=== PATIENT | male | born 1970 | race Caucasian/White ===

== ENCOUNTER → 2017-12-06 | Outpatient (CLI) | payer OTHER ==
[~2017-12-06] MED LIST: GABA-490 PO; INSU100V26 SC; INSU300I SC; MULT-964 PO
== END ==
LOC: LAB 12:29
PROVIDERS: ATTEND Nurse Practitioner Psychiatric/Mental Health
DX: E13.65 Other specified diabetes mellitus with hyperglycemia (principal)
CPT/HCPCS: 36415; 83036

== ENCOUNTER → 2018-05-17 | Outpatient (CLI) | payer BC ==
[2018-05-17 15:47] LABS: PLATELET COUNT, AUTOMATED 207 K/uL (150-450)
[2018-05-17 15:58] LABS: LDL CHOLESTEROL 55 mg/dl
== END ==
LOC: LAB 15:32
PROVIDERS: ATTEND Nurse Practitioner Psychiatric/Mental Health
DX: Z00.00 Encounter for general adult medical examination without abnormal findings (principal)
CPT/HCPCS: 36415; 82040; 82247; 82310; 82374; 82435; 82465; 82565; 82947; 83036; 83718; 84075; 84132; 84155; 84295; 84450; 84460; 84478; 84520; 85025

== ENCOUNTER 2018-12-10 09:14 | Inpatient (IN) | payer BC ==
[~2018-12-10] VITALS: Ht 185.4 cm; Wt 72.6 kg
[2018-12-10] VITALS (14 sets, daily range): BP systolic 102–143; BP diastolic 67–91; Ht 185.4 cm; Wt 72.6 kg
--- NOTE | 2018-12-10 09:23 | ER Report ---
History and Physical Time Seen By MD: 09:23 HPI/ROS CHIEF COMPLAINT: Nausea and vomiting and elevated blood glucose levels HISTORY OF PRESENT ILLNESS: This is a 48-year-old male. He has a history of type 1 diabetes. Has been sick for the last couple of days with nausea and vomiting. Because of this he has been unable to eat or drink anything and has not taken as much insulin resulting in higher blood glucose levels. Vomiting is intractable and he has not been able to keep anything down. Having epigastric pain associated with this. Feels a little short of breath with fast breathing but no fevers or chills noted. Allergies: Coded Allergies: No Known Drug Allergies (Unverified , 12/21/16) Home Meds Reported Medications Amoxicillin (AMOXICILLIN) 500 Mg Capsule 12/10/18 Insulin Regular, Human (HUMULIN R) 100 Unit/1 Ml Vial, 2-10 UNIT SC DIRECTED PRN for SLIDING SCALE INSULIN, VIAL 12/25/16 Multivitamin With Minerals (MULTIVITAMINS WITH MINERALS) 1 Each Tablet, 1 EACH PO DAILY 12/25/16 Gabapentin (NEURONTIN) 300 Mg Capsule, 300 MG PO TID, CAPSULE 12/25/16 Insulin Glargine,Hum.rec.anlog (Toumarshao Solostar) 300 Unit/1 Ml Insuln.pen, 20 SC QAM 12/22/16 Reviewed Nurses Notes: Yes Hx Smoking: Yes (quit smoking a few months ago) Smoking Status: Former Smoker Exposure to Second Hand Smoke?: No Hx Substance Use Disorder: No Hx Alcohol Use: Yes Constitutional Vital Sign - Last 24 Hours 12/10/18 12/10/18 12/10/18 12/10/18 09:14 09:21 09:21 09:29 Pulse ??? 92 83 Resp 24 B/P (MAP) 132/91 132/91 (105) Pulse Ox 96 97 O2 Delivery Room Air 12/10/18 12/10/18 12/10/18 12/10/18 09:30 09:44 09:45 09:59 Pulse 81 82 Resp 19 24 B/P (MAP) 124/88 (100) ???/??? (1665) Pulse Ox 99 95 12/10/18 12/10/18 12/10/18 12/10/18 10:00 10:15 10:29 10:44 Pulse 81 81 Resp 14 12 B/P (MAP) 117/75 (89) 128/80 (96) Pulse Ox 95 95 12/10/18 12/10/18 12/10/18 10:45 10:59 11:00 Pulse 82 Resp 15 B/P (MAP) 125/80 (95) 124/68 (86) Pulse Ox 93 Physical Exam General Appearance: The patient is alert. Having acute distress because of symptoms of nausea and pain. Ill appearing. Eyes: Pupils are equal, round. No pallor, injection or icterus. ENT: Mucous membranes are dry. Normal oral mucosa. Posterior oropharynx is normal. Neck: Supple and non tender. Respiratory: Lungs are clear to auscultation. Cardiovascular: Regular rate and rhythm. No murmurs, gallops or rubs. Normal capillary refill. Gastrointestinal: Abdomen is soft and has some epigastric tenderness. Nond istended. Normal active bowel sounds. No costovertebral angle tenderness with percussion. Neurological: Alert and oriented x3. No focal neurologic deficits Skin: Warm and dry. No rashes. DIFFERENTIAL DIAGNOSIS: After history and physical exam, differential diagnosis was considered for patient with epigastric pain, nausea vomiting, slightly rapid breathing and appears more Cusmano breathing suggesting diabetic ketoacidosis and given his history this is the most likely thing going on right now. Medical Decision Making Data Points Result Diagram: 12/10/18 0840 12/10/18 1441 Laboratory Hematology Test 12/10/18 08:40 Red Blood Count 5.69 M/uL (4.00-5.60) Mean Corpuscular Volume 94.7 fL (80.0-96.0) Mean Corpuscular Hemoglobin 32.0 pg (26.0-33.0) Mean Corpuscular Hemoglobin Concent 33.8 g/dL (32.0-36.0) Red Cell Distribution Width 12.5 % (11.5-14.5) Mean Platelet Volume 8.6 fL (7.2-11.1) Neutrophils (%) (Auto) 84.2 % (39.4-72.5) Lymphocytes (%) (Auto) 11.9 % (17.6-49.6) Monocytes (%) (Auto) 3.6 % (4.1-12.4) Eosinophils (%) (Auto) 0.0 % (0.4-6.7) Basophils (%) (Auto) 0.3 % (0.3-1.4) Nucleated RBC Relative Count (auto) 0.1 /100WBC Neutrophils # (Auto) 8.4 K/uL (2.0-7.4) Lymphocytes # (Auto) 1.2 K/uL (1.3-3.6) Monocytes # (Auto) 0.4 K/uL (0.3-1.0) Eosinophils # (Auto) 0.0 K/uL (0.0-0.5) Basophils # (Auto) 0.0 K/uL (0.0-0.1) Nucleated RBC Absolute Count (auto) 0.01 K/uL Total Bilirubin 0.5 mg/dl (0.2-1.3) Aspartate Amino Transf (AST/SGOT) 22 U/L (0-35) Alanine Aminotransferase (ALT/SGPT) 47 U/L (0-56) Alkaline Phosphatase 136 U/L (0-126) Total Protein 8.4 g/dl (6.3-8.2) Albumin 5.3 g/dl (3.5-5.0) Amylase Level 65 U/L (0-110) Lipase 76 U/L (23-300) Acetone, Qualitative Small Chemistry Test 12/10/18 08:40 White Blood Count 10.0 k/uL (4.5-11.0) Red Blood Count 5.69 M/uL (4.00-5.60) Hemoglobin 18.2 g/dL (14.0-18.0) Hematocrit 53.9 % (42.0-52.0) Mean Corpuscular Volume 94.7 fL (80.0-96.0) Mean Corpuscular Hemoglobin 32.0 pg (26.0-33.0) Mean Corpuscular Hemoglobin Concent 33.8 g/dL (32.0-36.0) Red Cell Distribution Width 12.5 % (11.5-14.5) Platelet Count 360 K/uL (150-450) Mean Platelet Volume 8.6 fL (7.2-11.1) Neutrophils (%) (Auto) 84.2 % (39.4-72.5) Lymphocytes (%) (Auto) 11.9 % (17.6-49.6) Monocytes (%) (Auto) 3.6 % (4.1-12.4) Eosinophils (%) (Auto) 0.0 % (0.4-6.7) Basophils (%) (Auto) 0.3 % (0.3-1.4) Nucleated RBC Relative Count (auto) 0.1 /100WBC Neutrophils # (Auto) 8.4 K/uL (2.0-7.4) Lymphocytes # (Auto) 1.2 K/uL (1.3-3.6) Monocytes # (Auto) 0.4 K/uL (0.3-1.0) Eosinophils # (Auto) 0.0 K/uL (0.0-0.5) Basophils # (Auto) 0.0 K/uL (0.0-0.1) Nucleated RBC Absolute Count (auto) 0.01 K/uL Total Bilirubin 0.5 mg/dl (0.2-1.3) Aspartate Amino Transf (AST/SGOT) 22 U/L (0-35) Alanine Aminotransferase (ALT/SGPT) 47 U/L (0-56) Alkaline Phosphatase 136 U/L (0-126) Total Protein 8.4 g/dl (6.3-8.2) Albumin 5.3 g/dl (3.5-5.0) Amylase Level 65 U/L (0-110) Lipase 76 U/L (23-300) Acetone, Qualitative Small Toxicology Test 12/10/18 08:40 Acetone, Qualitative Small EKG/Imaging EKG Interpretation 12 lead EKG: Rhythm: normal sinus rhythm [place]: normal QRS: normal ST segments: normal Imaging CT ABDOMEN PELVIS W/ CON COMPARISON: None. HISTORY: epigastric pain, n/v. Diabetic with hyperglycemia TECHNIQUE: Axial CT abdomen and pelvis with intravenous contrast. Coronal and sagittal reformats. One of the following dose optimization techniques was utilized in the performance of this exam: automated exposure control; adjustment of the mA and/or kV according to patient size; or use of iterative reconstruction technique. Specific details can be referenced in the facility's radiology CT exam operational policy. CONTRAST: 90 mL of IV Isovue-370. FINDINGS: LUNG BASES: Negative. LIVER: Small region of low density in the liver adjacent to the falciform ligament characteristic in location for perfusional variation versus focal fat deposition. Otherwise unremarkable liver. BILIARY: Negative. SPLEEN: Negative. PANCREAS: Negative. ADRENALS: Negative. KIDNEYS: Negative. GI/MESENTERY: Questionably dilated fluid-filled stomach, no gastric wall thickening or mass. No bowel wall thickening, appreciable mass or obstruction. No localized fat stranding or free fluid.. VASCULAR: Negative. LYMPH NODES: Negative. BLADDER: Negative. PELVIC ORGANS: Negative. BONES: Mild thoracic and lumbar spine endplate spurring with degenerative disc disease at L5-S1. Benign-appearing lucent lesion in the left iliac wing. OTHER: Negative. IMPRESSION: 1. Questionably dilated fluid-filled stomach without associated wall thickening or mass. In the context of diabetes mellitus this could be due to gastroparesis. It could also be incidental. 2. Otherwise unremarkable CT abdomen and pelvis. Report Dictated By: Poncho Joseph at 12/10/2018 10:52 AM ED Course/Re-evaluation Clinical Indication for ER IV: Hydration, IV Access ED Course After my initial evaluation, started IV fluids, Zofran and a little bit of morphine for pain. Labs were obtained and CT scan obtained. Also did EKG. EKG as noted above. Imaging negative other than slightly distended stomach, possibly representing gastroparesis. Started an insulin drip. Discussed the case with Dr. Varela and admitted to the ICU for DKA. Elevated serum acetone, electolyte abnormalities as expected for DKA. Decision to Disposition Date: Dec 10, 2018 Decision to Disposition Time: 11:03 Depart Departure Latest Vital Signs Vital Signs Date Time Temp Pulse Resp B/P (MAP) Pulse Ox O2 Delivery O2 Flow Rate FiO2 12/10/18 11:00 124/68 (86) 12/10/18 10:59 82 15 93 12/10/18 09:21 Room Air Impression: Primary Impression: Diabetic ketoacidosis Condition: Condition Unchanged Disposition: Admitted from ER Referrals: MANGO SALDAÑA (PCP) Problem Qualifiers Primary Impression: Diabetic ketoacidosis Diabetes mellitus type: type 1 Diabetes mellitus complication detail: without coma Qualified Codes: E10.10 - Type 1 diabetes mellitus with ketoacidosis without coma JOE SILVA MD Dec 10, 2018 09:23
[2018-12-10] MEDS ORDERED: ONDANSETRON 4 MG/2 ML VIAL IVP ONE ×2 (09:35→11:05)
[2018-12-10] MEDS ORDERED: NS(*) 0.9% 1000 ML BAG 1,000 ML IV ONE ×2 (09:35→11:05)
[2018-12-10] MEDS ORDERED: AMOX-362 (09:49)
[2018-12-10] MEDS ORDERED: MORPHINE 4 MG/ML SDV IVP ONE (09:50)
[2018-12-10 09:57] LABS: PLATELET COUNT, AUTOMATED 360 K/uL (150-450)
--- NOTE | 2018-12-10 10:13 | EKG ---
FACILITY: [facility] [place] PATIENT NAME: DARCY DOWNS : [id number] MR: [id number] V: [id number] EXAM DATE: ORDERING PHYSICIAN: JOE SILVA TECHNOLOGIST: STEPHANIE Contreras Reason : ER Blood Pressure : / mmHG Vent. Rate : 079 BPM Atrial Rate : 079 BPM P-R Int : 152 ms QRS Dur : 092 ms QT Int : 376 ms P-R-T Axes : 075 072 070 degrees QTc Int : 431 ms Normal sinus rhythm Right atrial enlargement Borderline ECG No previous ECGs available Confirmed by Steven Burrows ([id number]) on 12/10/2018 11:24:38 PM Referred By: SHIRA Confirmed By:Steven Sapp
[2018-12-10] MEDS ORDERED: IOPAMIDOL 61% 100 ML INFUS BTL 100 ML ONE (10:14)
--- NOTE | 2018-12-10 11:01 | RADIOLOGY IMAGING REPORT ---
FACILITY: [facility] PATIENT NAME: Mike Lebron : 1970 MR: [id number] V: [id number] EXAM DATE: ORDERING PHYSICIAN: JOE SILVA TECHNOLOGIST: Location: [facility] Patient: Mike Lebron : 1970 Visit/Account:[id number] Date of Sevice: 12/10/2018 CT ABDOMEN PELVIS W/ CON COMPARISON: None. HISTORY: epigastric pain, n/v. Diabetic with hyperglycemia TECHNIQUE: Axial CT abdomen and pelvis with intravenous contrast. Coronal and sagittal reformats. O ne of the following dose optimization techniques was utilized in the performance of this exam: autom ated exposure control; adjustment of the mA and/or kV according to patient size; or use of iterative reconstruction technique. Specific details can be referenced in the facility's radiology CT exam ope rational policy. CONTRAST: 90 mL of IV Isovue-370. FINDINGS: LUNG BASES: Negative. LIVER: Small region of low density in the liver adjacent to the falciform ligament characteristic in location for perfusional variation versus focal fat deposition. Otherwise unremarkable liver. BILIARY: Negative. SPLEEN: Negative. PANCREAS: Negative. ADRENALS: Negative. KIDNEYS: Negative. GI/MESENTERY: Questionably dilated fluid-filled stomach, no gastric wall thickening or mass. No carolann l wall thickening, appreciable mass or obstruction. No localized fat stranding or free fluid.. VASCULAR: Negative. LYMPH NODES: Negative. BLADDER: Negative. PELVIC ORGANS: Negative. BONES: Mild thoracic and lumbar spine endplate spurring with degenerative disc disease at L5-S1. Eugenio ign-appearing lucent lesion in the left iliac wing. OTHER: Negative. IMPRESSION: 1. Questionably dilated fluid-filled stomach without associated wall thickening or mass. In the cont ext of diabetes mellitus this could be due to gastroparesis. It could also be incidental. 2. Otherwise unremarkable CT abdomen and pelvis. Report Dictated By: Poncho Joseph at 12/10/2018 10:52 AM Report E-Signed By: Poncho Joseph at 12/10/2018 10:56 AM WSN:[id number]
[2018-12-10] MEDS ORDERED: INS HUM REG* 100 U/ML(ER ONLY) 100 UNIT in NS(*) 0.9% 100 ML BAG 99 ML IV SCH (11:05)
--- NOTE | 2018-12-10 13:48 | Medical Nutrition Therapy ---
Nutrition Anthropometrics Height (Inches): 73.00 Height (Calculated Centimeters: 185.695100 Weight (Pounds): 160 Weight (Calculated Kilograms): 72.575 Werner Nutrition Score: Werner Nutrition Risk Score: Dietary Referral Nutrition Risk Factors: Nutrition Risk Comment: Physical Findings Physical Appearance: Skin Appearance Skin Appearance: Edema Edema Location Modifier: Edema Location: Type of Edema: Degree of Edema: Gastrointestinal Symptoms GI Symtoms: Tube Present: Bowel Sounds: Recent Bowel Pattern: Stool Characteristics: Nutritional Diagnosis Nutritional Risk Acuity 2: DKA Nutritional Risk Acuity 4: %IBW 90-100% Past Medical History: Hx of DMT2, heavy smoker. Nutritional Acuity: 2-Moderate Nutrition Diagnosis: Inconsistent Carb. Intake Nutrition Etiology: Inadeq. Food/Dominique Intake, Inability Manage SelfCare Nutrition Problem/Etiology/Sym: Inconsistent carb intake related to inability to manage self care and inadequate food/dominique intake as evidenced by DKA and elevated RBG (590). Energy Requirement: 2344 (MSJ, 1.1 TEF, 1.3 AF) Protein Requirement: 73 (1g AA/kg of BW) Fluid Requirement: 2344 (1 mL/leanne) Nutrition Monitoring & Eval Nutrition Goals: Eat 50-100% Meal RD Patient Assessment Time: [address] Assessment Type: RD Screen Patient Nutrition Acuity: 2-Moderate Follow Up Date: Dec 12, 2018 Nutritional Comment: 12/10: Pt admitted for diabetic ketoacidosis and endocrine problems. Pt has hx of DMT2 and is a heavy smoker. Pt has elevated Potassium (6), RBG (590), BUN (37), creatinine (1.8), albumin (5.3), protein (8.4), and decreased Co2 (8). Recommend diabetic diet. -AISLINN VIEIRA Dec 10, 2018 12:28
[2018-12-10] MEDS: D5 1/2 NS(*) 1000 ML BAG 1,000 ML IV SCH ×2 (16:25→21:01)
[2018-12-10] MEDS ORDERED: INSULIN GLARGINE 100 U/ML 3 ML PEN SUBQ SCH (21:00)
[2018-12-10] MEDS ORDERED: FLUSH 10 ML SYR IVP PRN (21:40)
[2018-12-10] MEDS ORDERED: INFLUENZA VIRUS VAC 0.5ML SYR IM ONLY ONE (21:40)
[2018-12-10] MEDS ORDERED: ACETAMINOPHEN 325 MG TAB PO PRN (21:40)
--- NOTE | 2018-12-10 21:52 | History & Physical ---
History of Present Illness Chief Complaint n/v, ams History of Present Illness 48M presented with n/v and ams. PMHx significant for type 1 DM diagnosed 2 years ago. Reports 2-3 days nausea and vomiting today began to have difficulties thinking and presented to ER. Found to be in DKA. No obvious infective source identified. Reports inciting incident was that he was out of insulin and unable to get refill from PCP. History Problems: (1) Diabetes type 1, uncontrolled Status: Chronic Home Meds Reported Medications Amoxicillin (AMOXICILLIN) 500 Mg Capsule 12/10/18 Insulin Regular, Human (HUMULIN R) 100 Unit/1 Ml Vial, 2-10 UNIT SC DIRECTED PRN for SLIDING SCALE INSULIN, VIAL 12/25/16 Multivitamin With Minerals (MULTIVITAMINS WITH MINERALS) 1 Each Tablet, 1 EACH PO DAILY 12/25/16 Gabapentin (NEURONTIN) 300 Mg Capsule, 300 MG PO TID, CAPSULE 12/25/16 Insulin Glargine,Hum.rec.anlog (Toujeo Solostar) 300 Unit/1 Ml Insuln.pen, 20 SC QAM 12/22/16 Allergies: Coded Allergies: No Known Drug Allergies (Unverified , 12/21/16) Patient History: FHx: alcoholism FATHER MOTHER Hx Smoking: Yes (quit smoking a few months ago) Smoking Status: Former Smoker Exposure to Second Hand Smoke?: No Caffeine Intake: Coffee Caffeine/Cups Per Day: 1 per day Hx Alcohol Use: Yes (RARE) Hx Substance Use Disorder: No Social Drug Use: Currently Social Drugs: Marijuana Review of Systems All Systems Reviewed/Normal: Yes, Except as Noted Constitutional: No Fever Respiratory: No Shortness of Breath, No Cough Gastrointestinal: Nausea, Vomiting, Abdominal Pain Exam Vital Signs Vital Signs Date Time Temp Pulse Resp B/P (MAP) Pulse Ox O2 Delivery O2 Flow Rate FiO2 12/10/18 20:16 89 Room Air 12/10/18 15:16 75 12/10/18 14:45 15 120/73 (89) 12/10/18 12:04 97.4 General Appearance: Alert, Awake, No Acute Distress, Afebrile Neuro: No Gross deficits ENT: Normal Cardiovascular: Normal Rhythm & Peripheral Pulses Respiratory: No Respiratory Distress GI: Abd Soft and Non-Tender Extremities: Soft and Non Tender, Warm, Pulses, Perfused; No Edema Medical Decision Making Data Points Result Diagram: 12/10/18 0840 12/10/18 1033 EKG / Imaging Monitor Interpretation: Normal Sinus Rhythm Assessment and Plan Problems: (1) Diabetic ketoacidosis Status: Acute Assessment & Plan: Insulin gtt, IV fluids, electrolyte replacement PRN. Anion gap closing and patient mental status near baseline. No further vomiting. Anticipate will be eating well tomorrow am, Lantus scheduled, possible discharge as early as tomorrow. Will give sufficient insulin to make sure he can establish with new PCP per his wishes. (2) Diabetes type 1, uncontrolled Status: Chronic Assessment & Plan: Plans to establish with new PCP, will give insulin to ensure supply sufficient to establish with them and not run out. Due to difficulties in monitoring and irregular eating habits while working he is currently being managed with only basal insulin. Venous Thromboembolism Antithrombotics Is Pt On Any Antithrombotics?: Yes Exam Sepsis Risk: No Definite Risk Problem Qualifiers (1) Diabetic ketoacidosis: Diabetes mellitus type: type 1 Diabetes mellitus complication detail: without coma Qualified Codes: E10.10 - Type 1 diabetes mellitus with ketoacidosis without coma LIZ NOLASCO DO Dec 10, 2018 21:52
[2018-12-11] MEDS: INSULIN HUM REG 100 UN/ML 3 ML VIAL SC PRN ×3 (03:21→09:10)
[2018-12-11 04:47] VITALS: BP 98/67
[2018-12-11 07:30] VITALS: BP 111/73
[2018-12-11] MEDS ORDERED: INSULIN GLARGINE 100 U/ML 3 ML PEN SUBQ SCH (09:00)
[2018-12-11] MEDS ORDERED: ENOXAPARIN 40 MG/0.4ML SYR SC SCH (09:00)
[2018-12-11] MEDS ORDERED: INSU300I SC (09:04)
--- NOTE | 2018-12-11 09:16 | Hospitalist Depart ---
Discharge Summary Reason for Hosp/Final Diag: (1) Diabetic ketoacidosis Status: Acute Hospital Course & Plan: Due to noncompliance (he stopped his insulin for several days because "I ran out"). He was placed on IV insulin drip, aggressive IV fluids, and electrolyte replacement. His glucoses improved and anion gap closed. The patient's mental status returned to normal. He was able to eat and drink normally. He was transitioned back to his subcutaneous regimen. We discussed appropriate diet, monitoring, and use of his insulin. He reported understanding of all of this, but "I'm just a bad patient". We did arrange for him to have diabetic education as well. He is planning on follow up with primary care physician on Sunday12/13/18. (2) Diabetes type 1, uncontrolled Status: Chronic Hospital Course & Plan: Plans to establish with new primary care provider on Sunday12/13/18. He was given insulin prescription to ensure supply sufficient to establish and not run out. At this point he will be only on the long acting insulin, but was advised he would most likely need to be started on a short acting insulin to help him get adequate control of his diabetes. He stated he understood all of this and was willing to "do what I need to do". Departure Weight (Pounds): 160 Result Diagram: 12/10/18 0840 12/11/18 0504 Item Value Date Time Sodium Level 134 mmol/L L 12/10/18 0840 Potassium Level 6.0 mmol/L *H 12/10/18 0840 Chloride Level 90 mmol/L L 12/10/18 0840 Carbon Dioxide Level 8 mmol/L *L 12/10/18 0840 Blood Urea Nitrogen 37 mg/dl H 12/10/18 0840 Creatinine 1.80 mg/dl H 12/10/18 0840 Glomerular Filtration Rate Calc 40.5 12/10/18 0840 Random Glucose 590 mg/dl *H 12/10/18 0840 Calcium Level 9.4 mg/dl 12/10/18 0840 Total Bilirubin 0.5 mg/dl 12/10/18 0840 Aspartate Amino Transf (AST/SGOT) 22 U/L 12/10/18 0840 Alanine Aminotransferase (ALT/SGPT) 47 U/L 12/10/18 0840 Alkaline Phosphatase 136 U/L H 12/10/18 0840 Total Protein 8.4 g/dl H 12/10/18 0840 Albumin 5.3 g/dl H 12/10/18 0840 Amylase Level 65 U/L 12/10/18 0840 Lipase 76 U/L 12/10/18 0840 Acetone, Qualitative Small 12/10/18 0840 Imaging PATIENT NAME: Mike Lebron : 1970 MR: [id number] V: [id number] EXAM DATE: ORDERING PHYSICIAN: JOE SILVA TECHNOLOGIST: Location: [facility] [place] Patient: Mike Lebron : 1970 Visit/Account:[id number] Date of Sevice: 12/10/2018 CT ABDOMEN PELVIS W/ CON COMPARISON: None. HISTORY: epigastric pain, n/v. Diabetic with hyperglycemia TECHNIQUE: Axial CT abdomen and pelvis with intravenous contrast. Coronal and sagittal reformats. One of the following dose optimization techniques was utilized in the performance of this exam: automated exposure control; adjustment of the mA and/or kV according to patient size; or use of iterative reconstruction technique. Specific details can be referenced in the facility's radiology CT exam operational policy. CONTRAST: 90 mL of IV Isovue-370. FINDINGS: LUNG BASES: Negative. LIVER: Small region of low density in the liver adjacent to the falciform ligament characteristic in location for perfusional variation versus focal fat deposition. Otherwise unremarkable liver. BILIARY: Negative. SPLEEN: Negative. PANCREAS: Negative. ADRENALS: Negative. KIDNEYS: Negative. GI/MESENTERY: Questionably dilated fluid-filled stomach, no gastric wall thickening or mass. No bowel wall thickening, appreciable mass or obstruction. No localized fat stranding or free fluid.. VASCULAR: Negative. LYMPH NODES: Negative. BLADDER: Negative. PELVIC ORGANS: Negative. BONES: Mild thoracic and lumbar spine endplate spurring with degenerative disc disease at L5-S1. Benign-appearing lucent lesion in the left iliac wing. OTHER: Negative. IMPRESSION: 1. Questionably dilated fluid-filled stomach without associated wall thickening or mass. In the context of diabetes mellitus this could be due to gastroparesis. It could also be incidental. 2. Otherwise unremarkable CT abdomen and pelvis. Report Dictated By: Poncho Joseph at 12/10/2018 10:52 AM Report E-Signed By: Poncho Joseph at 12/10/2018 10:56 AM WSN:[id number] Condition: Improved Discharge: Home, Self Care Follow-Up Labs: Finger Sticks (AC and HS) Time Spent: > 30 min Discharge Instructions Home Meds Active Scripts Insulin Glargine,Hum.rec.anlog (Toujeo Solostar) 300 Unit/1 Ml Insuln.pen, 30 UNITS SC QAM, #1 PEN 1 Refill Prov:JOSE DUNN MD 12/11/18 Reported Medications Amoxicillin (AMOXICILLIN) 500 Mg Capsule 12/10/18 Multivitamin With Minerals (MULTIVITAMINS WITH MINERALS) 1 Each Tablet, 1 EACH PO DAILY 12/25/16 Gabapentin (NEURONTIN) 300 Mg Capsule, 300 MG PO TID, CAPSULE 12/25/16 Discontinued Reported Medications Insulin Regular, Human (HUMULIN R) 100 Unit/1 Ml Vial, 2-10 UNIT SC DIRECTED PRN for SLIDING SCALE INSULIN, VIAL 12/25/16 Diet: Diabetic Activity: As Tolerated Special Instructions: Follow up with Primary Care Physician on Sunday12/13/18 as planned. Keep diary of glucoses and bring to all appointments. Venous Thromboembolism Antithrombotics Is Pt On Any Antithrombotics?: Yes Problem Qualifiers (1) Diabetic ketoacidosis: Diabetes mellitus type: type 1 Diabetes mellitus complication detail: without coma Qualified Codes: E10.10 - Type 1 diabetes mellitus with ketoacidosis without coma JOSE DUNN MD Dec 11, 2018 09:16
--- NOTE | 2018-12-13 10:43 | Medical Nutrition Therapy ---
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 Nutrition Monitoring & Eval RD Patient Assessment Time: [address] Assessment Type: RD Education Patient Nutrition Acuity: 2-Moderate Follow Up Date: Dec 17, 2018 Nutritional Comment: 12/10: Pt admitted for diabetic ketoacidosis and endocrine problems. Pt has hx of DMT2 and is a heavy smoker. Pt has elevated Potassium (6), RBG (590), BUN (37), creatinine (1.8), albumin (5.3), protein (8.4), and decreased Co2 (8). Recommend diabetic diet. 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 Pt will follow up with diabetes clinic educators following referral from the pt's primary care physician. -AISLINN VIEIRA Dec 11, 2018 11:48
== END 2018-12-11 12:30 | disposition home or self-care (01) | DRG 639 ==
LOC: ER 09:27 → ICU 11:25
PROVIDERS: ADMIT Internal Medicine; ATTEND Internal Medicine
DX: E10.10 Type 1 diabetes mellitus with ketoacidosis without coma (principal); T38.3X6A Underdosing of insulin and oral hypoglycemic [antidiabetic] drugs, initial encounter; Z91.128 Patient's intentional underdosing of medication regimen for other reason; Z87.891 Personal history of nicotine dependence; Z79.4 Long term (current) use of insulin
CPT/HCPCS: 36415; 36416; 74177; 82009; 82040; 82150; 82247; 82310; 82374; 82435; 82565; 82947; 82948; 83036; 83690; 83735; 84075; 84132; 84155; 84295; 84450; 84460; 84520; 85025; 93005; 96361; 96374; 99285; J1650; J1815; J2270; J2405; J7030; J7050; Q9967

== ENCOUNTER 2018-12-14 09:42 | Outpatient (CLI) | payer BC ==
[2018-12-10 12:06] VITALS: Ht 185.4 cm
[~2018-12-14 09:42] MED LIST changes: +AMOX-362
--- NOTE | 2018-12-14 11:32 | Medical Nutrition Therapy ---
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 Explained how insulin pump functions. What he would need to do, (count CHO, check BG). Expectation for feeling like he is hypoglycemic when he initially starts r/t his current A1C of >14. Reviewed role of CHO and discussed CHO ratio and counting CHO. Pt has phone julia with CHO counting on it. Recommend he cont to use it and keep practiceing CHO counting. Recommended intial CHO of 1:13 - 1:15 based on wt method. Provided handout on CHO counting for insulin pump users. 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 Nutrition Monitoring & Eval RD Patient Assessment Time: [address] Assessment Type: RD Education Nutritional Comment: provided 70 minutes education on function of insulin pump and CHO counting Copies To Copies to: MARILEE FARRELL MD ; GABBY WONG Dec 14, 2018 11:32
== END 2018-12-25 10:50 | disposition home or self-care (01) ==
LOC: DIET 09:42
PROVIDERS: ATTEND Family Medicine
DX: E10.65 Type 1 diabetes mellitus with hyperglycemia (principal)
CPT/HCPCS: G0108 ×2